=== PATIENT | female | born 2000 | race Hispanic/Latino ===

== ENCOUNTER 2022-10-25 21:54 | Emergency (ER) | payer MEDICAID ==
[~2022-10-25] VITALS: Ht 162.6 cm; Wt 63.5 kg
[2022-10-25 22:24] LABS: BASOPHILS % (AUTO) 0.5 % (0.0-5.0); EOSINOPHILS % (AUTO) 0.5 % (0.0-8.0); HEMATOCRIT 36.8 % (36-48); LYMPHOCYTES % (AUTO) 30.1 % (21.0-51.0); MEAN CORPUSCULAR HEMOGLOBIN 25.3 pg (27.0-33.0); MEAN CORPUSCULAR HGB CONC 31.3 g/dL (32.0-36.0); MEAN CORPUSCULAR VOLUME 80.9 fL (79-99); MONOCYTES % (AUTO) 6.9 % (3.0-13.0); NEUTROPHILS % (AUTO) 61.7 % (40.0-77.0); PLATELET COUNT (AUTO) 326 K/uL (130-400); RED BLOOD CELL COUNT(AUTO) 4.55 MIL/uL (4.00-5.50); RED CELL DISTRIBUTION WIDTH 17.1 % (11.0-15.5); WHITE BLOOD COUNT (AUTO) 14.8 K/uL (4.8-10.8)
[2022-10-25 22:37] LABS: CREATININE 0.8 mg/dL (0.5-1.5)
[2022-10-25 22:38] LABS: POTASSIUM 2.9 mmol/L (3.5-5.1)
[2022-10-25 22:52] LABS: APPEARANCE,URINE TURBID (CLEAR); BILIRUBIN,URINE NEGATIVE (NEGATIVE); COLOR,URINE LIGHT-ORANGE (YELLOW); GLUCOSE, URINE (UA) NEGATIVE (NEGATIVE); KETONES,URINE 60 mg/dL (NEGATIVE); LEUKOCYTE ESTERASE ,URINE 25 Leu/uL (NEGATIVE); NITRATE,URINE 2+ (NEGATIVE); OCCULT BLOOD,URINE MODERATE (NEGATIVE); PH,URINE 7.5 (5.0-8.0); PROTEIN,URINE 30 mg/dL (NEGATIVE); UROBILINOGEN,URINE 0.2 mg/dL (0.2-1.0)
[2022-10-25] MEDS ORDERED: POTASSIUM BICARB/CIT AC 25 MEQ TABLET.EFF PO ONE (23:00)
[2022-10-25] MEDS ORDERED: LEVETIRACETAM 500 MG/5 ML SD VIAL IV SCH (23:00)
[2022-10-25 23:01] LABS: BACTERIA,URINE RARE /HPF (None Seen); MUCUS,URINE MOD LPF (None Seen)
[2022-10-26] MEDS ORDERED: LEVE-43 PO (00:31)
[2022-10-26 00:33] VITALS: BP 121/75
== END 2022-10-26 00:43 | disposition home or self-care (01) ==
LOC: EDH 21:54
DX: G40.909 Epilepsy, unspecified, not intractable, without status epilepticus (principal); E87.6 Hypokalemia
CPT/HCPCS: 99284; 96374; 80053; 85025; 87077; 87088; 87186; 81001; 81025; 36415; 80177; J1953

== ENCOUNTER 2023-01-02 11:12 | Emergency (ER) | payer MEDICAID ==
[~2023-01-02] VITALS: Ht 167.6 cm; Wt 68.0 kg
[~2023-01-02 11:12] MED LIST: LEVE-43 PO
[2023-01-02 11:13] VITALS: BP 130/85
[2023-01-02 11:52] LABS: APPEARANCE,URINE CLOUDY (CLEAR); BILIRUBIN,URINE NEGATIVE (NEGATIVE); COLOR,URINE YELLOW (YELLOW); GLUCOSE, URINE (UA) NEGATIVE (NEGATIVE); KETONES,URINE NEGATIVE (NEGATIVE); LEUKOCYTE ESTERASE ,URINE 25 Leu/uL (NEGATIVE); NITRATE,URINE NEGATIVE (NEGATIVE); OCCULT BLOOD,URINE NEGATIVE (NEGATIVE); PH,URINE 7.5 (5.0-8.0); PROTEIN,URINE 10 mg/dL (NEGATIVE); UROBILINOGEN,URINE 0.2 mg/dL (0.2-1.0)
[2023-01-02 11:57] LABS: HCG,QUALITATIVE URINE POSITIVE (NEGATIVE)
[2023-01-02 12:00] LABS: BACTERIA,URINE RARE /HPF (None Seen); MUCUS,URINE FEW LPF (None Seen); OTHER CASTS, URINE 2 /LPF (None Seen); SQUAMOUS EPITHELIAL CELL,UR MOD /HPF (0-2)
== END 2023-01-02 13:03 | disposition left against medical advice (07) ==
LOC: EDH 11:12
DX: O26.899 Other specified pregnancy related conditions, unspecified trimester (principal); O46.90 Antepartum hemorrhage, unspecified, unspecified trimester; Z3A.00 Weeks of gestation of pregnancy not specified
CPT/HCPCS: 76801; 81001; 81025

== ENCOUNTER 2023-08-10 13:59 | Inpatient (IN) | payer MEDICAID, OTHER ==
[~2023-08-10] VITALS: Ht 167.6 cm; Wt 79.4 kg
[2023-08-10 15:19] LABS: HEMATOCRIT 32.8 % (36-48); MEAN CORPUSCULAR HEMOGLOBIN 23.1 pg (27.0-33.0); MEAN CORPUSCULAR HGB CONC 30.5 g/dL (32.0-36.0); MEAN CORPUSCULAR VOLUME 75.8 fL (79-99); PLATELET COUNT (AUTO) 350 K/uL (130-400); RED BLOOD CELL COUNT(AUTO) 4.33 MIL/uL (4.00-5.50); RED CELL DISTRIBUTION WIDTH 16.2 % (11.0-15.5)
[2023-08-10 15:22] LABS: APPEARANCE,URINE SL CLOUDY (CLEAR); BILIRUBIN,URINE NEGATIVE (NEGATIVE); COLOR,URINE YELLOW (YELLOW); GLUCOSE, URINE (UA) NEGATIVE (NEGATIVE); KETONES,URINE NEGATIVE (NEGATIVE); LEUKOCYTE ESTERASE ,URINE SMALL Leu/uL (NEGATIVE); NITRATE,URINE NEGATIVE (NEGATIVE); OCCULT BLOOD,URINE NEGATIVE (NEGATIVE); PROTEIN,URINE NEGATIVE (NEGATIVE)
[2023-08-10 15:25] LABS: ADD UA MICROSCOPIC YES
[2023-08-10 15:29] LABS: AMPHET/METH SCREEN,URINE POSITIVE (NEGATIVE); BARBITURATE SCREEN, URINE NEGATIVE (NEGATIVE); BENZODIAZEPINES SCREEN,URINE POSITIVE (NEGATIVE); CANNABINOID SCREEN,URINE POSITIVE (NEGATIVE); COCAINE SCREEN,URINE POSITIVE (NEGATIVE); OPIATE SCREEN,URINE NEGATIVE (NEGATIVE); PHENCYCLIDINE SCREEN,URINE NEGATIVE (NEGATIVE)
[2023-08-10 15:30] LABS: BACTERIA,URINE RARE /HPF (None Seen); MUCUS,URINE RARE LPF (None Seen); SQUAMOUS EPITHELIAL CELL,UR MOD /HPF (0-2); UNCLASSIFIED CRYSTAL 3 /HPF (None Seen)
[2023-08-10] MEDS ORDERED: AMPICILLIN 2GM+NS 100ML 100 ML IV SCH (15:30)
[2023-08-10] MEDS ORDERED: MEPERIDINE-PF 50 MG/ML SYG IVP PRN (15:30)
[2023-08-10] MEDS ORDERED: LACTATED RINGERS 1000ML 1,000 ML IV PRN (15:30)
[2023-08-10] MEDS ORDERED: PROMETHAZINE HCL 25 MG/ML 1ML AMPULE IM PRN (15:30)
[2023-08-10] MEDS ORDERED: LIDOCAINE HCL 1% 20 ML VIAL ONE (16:09)
[2023-08-10] MEDS ORDERED: MISOPROSTOL 200 MCG TABLET ONE (16:10)
[2023-08-10] MEDS ORDERED: OXYTOCIN-LR 30 UNITS/500ML 500 ML IV ONE (16:10)
[2023-08-10 16:11] LABS: HIV 1&2 ANTIBODY Non-Reactive (Negative); HIV-1 p24 Antigen Non-Reactive (Negative)
[2023-08-10] MEDS ORDERED: MISOPROSTOL 25 MCG TAB PR ONE (16:30)
[2023-08-10] MEDS ORDERED: BENZOCAINE/LANOLIN/ALOE VERA 60 ML AEROSOL TP PRN (17:00)
[2023-08-10] MEDS ORDERED: LANOLIN 30GM OINTMENT TP PRN (17:00)
[2023-08-10] MEDS ORDERED: MISOPROSTOL 200 MCG TABLET PR ONE (17:00)
[2023-08-10] MEDS ORDERED: ACETAMINOPHEN WITH CODEINE 1 TAB TAB PO PRN (17:00)
[2023-08-10] MEDS ORDERED: ACETAMINOPHEN 325 MG TAB PO PRN (17:00)
[2023-08-10] MEDS ORDERED: MEASLES/MUMPS/RUBELLA VACCINE, LIVE 0.5 ML/VIAL SQ PRN (17:00)
[2023-08-10] MEDS ORDERED: DIPH,PERTUSS(ACELL),TET VAC/PF 0.5 ML VIAL IM PRN (17:00)
[2023-08-10] MEDS ORDERED: WITCH HAZEL 1 PAD TP PRN (17:00)
[2023-08-10] MEDS: OXYTOCIN-LR 30 UNITS/500ML 500 ML IV SCH (17:08)
[2023-08-10] MEDS ORDERED: AMPICILLIN 1GM+NS 50ML 50 ML IV SCH (19:30)
[2023-08-10 20:00] VITALS: BP 117/75; PULSE 73; RESP 20
[2023-08-10] MEDS: IBUPROFEN 600 MG TABLET PO PRN (21:25)
[2023-08-10] MEDS: DOCUSATE SODIUM 100 MG CAP PO SCH (21:25)
[2023-08-11 00:06] VITALS: BP 97/65; PULSE 69; RESP 17
[2023-08-11 04:25] VITALS: BP 121/73; PULSE 59; RESP 14
[2023-08-11 06:20] LABS: HEMATOCRIT 28.2 % (36-48); MEAN CORPUSCULAR HEMOGLOBIN 22.9 pg (27.0-33.0); MEAN CORPUSCULAR HGB CONC 30.9 g/dL (32.0-36.0); MEAN CORPUSCULAR VOLUME 74.2 fL (79-99); RED BLOOD CELL COUNT(AUTO) 3.8 MIL/uL (4.00-5.50)
[2023-08-11 07:17] VITALS: BP 111/69; PULSE 70; RESP 18
[2023-08-11] MEDS: DOCUSATE SODIUM 100 MG CAP PO SCH (08:43)
[2023-08-11] MEDS: IBUPROFEN 600 MG TABLET PO PRN (08:44)
[2023-08-11 12:05] VITALS: BP 112/72; PULSE 73; RESP 18
[2023-08-11 14:52] LABS: RAPID PLASMA REAGIN NONREACTIVE (NONREACTIVE)
[2023-08-11 15:59] VITALS: BP 116/69; PULSE 79; RESP 18
[2023-08-11] MEDS ORDERED: IBUP-2697 PO (16:52)
[2023-08-11] MEDS: OXYTOCIN-LR 30 UNITS/500ML 500 ML IV SCH (17:00)
== END 2023-08-11 17:20 | disposition home or self-care (01) | DRG 805 ==
LOC: EDH 13:59 → OBSVTOIN 15:04 → LDH 15:04 → WSH 19:30
PROVIDERS: ADMIT Obstetrics & Gynecology; ATTEND Obstetrics & Gynecology
PROC: 10E0XZZ Delivery of Products of Conception, External Approach (ICD-10-PCS; principal; 2023-08-10)
PROC: 3E0DXGC Introduction of Other Therapeutic Substance into Mouth and Pharynx, External Approach (ICD-10-PCS; 2023-08-10)
DX: O99.324 Drug use complicating childbirth (principal); O60.14X0 Preterm labor third trimester with preterm delivery third trimester, not applicable or unspecified; Z37.0 Single live birth; F19.10 Other psychoactive substance abuse, uncomplicated; O62.3 Precipitate labor; Z3A.36 36 weeks gestation of pregnancy
CPT/HCPCS: 36415; 76805; 80305; 81001; 83033; 85027; 86592; 86701; 86850; 86900; 86901; 87088; 87340; 87390; G0378; J0290; J2791; J7120